=== PATIENT | female | born 1965 | race Caucasian/White ===

== ENCOUNTER 2017-03-24 22:01 | Emergency (ER) | payer BC ==
[~2017-03-24] VITALS: Ht 154.9 cm; Wt 85.0 kg
[2017-03-24 22:16] VITALS: BP 166/97
[2017-03-24] MEDS ORDERED: IBUPROFEN 200 MG TABLET ONE (22:29)
[2017-03-24] MEDS ORDERED: IBUPROFEN 800 MG TABLET PO ONE (22:30)
== END 2017-03-25 00:04 | disposition home or self-care (01) ==
LOC: ED 23:00
DX: S93.491A Sprain of other ligament of right ankle, initial encounter (principal); S93.621A Sprain of tarsometatarsal ligament of right foot, initial encounter; I10 Essential (primary) hypertension; E11.9 Type 2 diabetes mellitus without complications; E03.9 Hypothyroidism, unspecified; Z88.0 Allergy status to penicillin; X50.9XXA Other and unspecified overexertion or strenuous movements or postures, initial encounter; Y93.89 Activity, other specified; Y99.8 Other external cause status; Y92.009 Unspecified place in unspecified non-institutional (private) residence as the place of occurrence of the external cause